=== PATIENT | male | born 1960 | race Asian ===

== ENCOUNTER → 2021-09-25 | Outpatient (CLI) | payer BC | END | disposition home or self-care (01) | LOC: RAH 07:31 | PROVIDERS: ATTEND Thoracic Surgery (Cardiothoracic Vascular Surgery) | DX: I65.23 Occlusion and stenosis of bilateral carotid arteries (principal) | CPT/HCPCS: 93880 ==

== ENCOUNTER → 2021-10-01 | Outpatient (CLI) | payer BC | END | disposition home or self-care (01) | LOC: SHCH 07:48 | PROVIDERS: ATTEND Internal Medicine | DX: R94.31 Abnormal electrocardiogram [ECG] [EKG] (principal) | CPT/HCPCS: 93306 ==

== ENCOUNTER 2021-10-22 05:59 | Day surgery (SDC) | payer BC ==
[2021-10-17 09:00] LABS: BASOPHILS % (AUTO) 0.8 % (0.0-5.0); EOSINOPHILS % (AUTO) 4.8 % (0.0-8.0); HEMATOCRIT 40.8 % (42-54); LYMPHOCYTES % (AUTO) 25.6 % (21.0-51.0); MEAN CORPUSCULAR HEMOGLOBIN 30.1 pg (27.0-33.0); MEAN CORPUSCULAR HGB CONC 33.1 g/dL (32.0-36.0); MEAN CORPUSCULAR VOLUME 91.1 fL (79-99); MONOCYTES % (AUTO) 8.2 % (3.0-13.0); NEUTROPHILS % (AUTO) 60.2 % (40.0-77.0); PLATELET COUNT (AUTO) 256 K/uL (130-400); RED BLOOD CELL COUNT(AUTO) 4.48 MIL/uL (4.50-6.20); RED CELL DISTRIBUTION WIDTH 13.5 % (11.0-15.5); WHITE BLOOD COUNT (AUTO) 9.5 K/uL (4.8-10.8)
[2021-10-17 09:11] LABS: INR 0.94 (0.85-1.15); PROTHROMBIN TIME 10.3 SEC (9.6-11.6)
[2021-10-17 09:12] LABS: PARTIAL THROMBOPLASTIN TIME 27.3 SEC (26.3-35.5)
[2021-10-17 09:14] LABS: CREATININE 3.4 mg/dL (0.5-1.5); POTASSIUM 5.3 mmol/L (3.5-5.1)
[2021-10-17 09:36] LABS: B-TYPE NATRIURETIC PEPTIDE 7 pg/mL (0-100)
[2021-10-21 12:01] VITALS: BP 91/63
[~2021-10-22] VITALS: Ht 175.3 cm; Wt 105.7 kg
[2021-10-22] VITALS (7 sets, daily range): BP systolic 110–156; BP diastolic 82–96
[~2021-10-22 05:59] MED LIST: MIDODRINE PO; SODIUM BICARBONATE PO
[2021-10-22] MEDS ORDERED: 0.9%NACL 1000ML 1,000 ML IV ONE (06:19)
[2021-10-22] MEDS ORDERED: 0.9%NACL 1000ML 1,000 ML IV SCH (08:00)
[2021-10-22] MEDS ORDERED: IOHEXOL 350 MG/ML 100ML INFUS..BTL IV ONE (08:54)
[2021-10-22] MEDS ORDERED: FENTANYL CITRATE PF 50 MCG/1 ML 2ML VIAL ONE (08:55)
[2021-10-22] MEDS ORDERED: MIDAZOLAM HCL 1 MG/ML 2ML VIAL ONE (08:55)
[2021-10-22] MEDS ORDERED: LIDOCAINE HCL 400MG/20ML VIAL ONE (08:55)
[2021-10-22] MEDS ORDERED: GLUCAGON 1MG KIT 1 MG ML IM PRN (10:00)
[2021-10-22] MEDS ORDERED: DEXTROSE 50%-WATER 50 ML DISP.SYRIN IV PRN (10:00)
[2021-10-22] MEDS: 0.9%NACL 1000ML 1,000 ML IV SCH ×2 (10:48→11:57)
== END 2021-10-22 13:15 | disposition home or self-care (01) ==
LOC: DAH 05:59
PROVIDERS: ATTEND Internal Medicine
DX: Z01.810 Encounter for preprocedural cardiovascular examination (principal); E11.22 Type 2 diabetes mellitus with diabetic chronic kidney disease; N18.4 Chronic kidney disease, stage 4 (severe); I45.10 Unspecified right bundle-branch block; R94.31 Abnormal electrocardiogram [ECG] [EKG]; Z79.01 Long term (current) use of anticoagulants; Z79.899 Other long term (current) drug therapy
CPT/HCPCS: 80048; 83880; 85025; 85610; 85730; 36415; 71045; 93005; 93458; C1894 ×2; J3010; J3490; J7030; J2250; J1644; Q9967; A4215; A4222; A4221; A4663; A4216; A4606; Q9965; A4223 ×3; 96360; 96361; 99156; 99157

== ENCOUNTER 2021-10-25 19:52 | Emergency (ER) | payer BC ==
[~2021-10-25] VITALS: Ht 175.3 cm; Wt 102.5 kg
[2021-10-25] MEDS: 0.9% NACL 500ML IV.SOLN 500 ML IV ONE (20:12)
[2021-10-25 20:17] LABS: BASOPHILS % (AUTO) 0.5 % (0.0-5.0); EOSINOPHILS % (AUTO) 4.9 % (0.0-8.0); HEMATOCRIT 37.5 % (42-54); LYMPHOCYTES % (AUTO) 19.6 % (21.0-51.0); MEAN CORPUSCULAR HEMOGLOBIN 30.2 pg (27.0-33.0); MEAN CORPUSCULAR HGB CONC 33.9 g/dL (32.0-36.0); MEAN CORPUSCULAR VOLUME 89.3 fL (79-99); MONOCYTES % (AUTO) 8.4 % (3.0-13.0); PLATELET COUNT (AUTO) 205 K/uL (130-400); RED CELL DISTRIBUTION WIDTH 13.2 % (11.0-15.5); WHITE BLOOD COUNT (AUTO) 9.4 K/uL (4.8-10.8)
[2021-10-25] MEDS: MORPHINE 4 MG SYG IVP ONE ×2 (20:24→21:23)
[2021-10-25 20:42] LABS: ALBUMIN 3.4 g/dL (3.5-5.0); CREATININE 2.5 mg/dL (0.5-1.5); CRP QUANTITATIVE 23.6 mg/L (0.00-9.0); POTASSIUM 4.2 mmol/L (3.5-5.1); TOTAL PROTEIN, SERUM 7.4 g/dL (6.0-8.3); URIC ACID 9.9 mg/dL (2.6-7.2)
[2021-10-25] MEDS: 0.9%NACL 1000ML 1,000 ML IV SCH ×2 (21:01→22:56)
[2021-10-25] MEDS: DEXAMETHASONE SOD PHOSPHATE 4 MG/ML 1ML VIAL ONE (21:01)
[2021-10-25] MEDS: DEXAMETHASONE SOD PHOSPHATE 4 MG/ML 1ML VIAL IVP ONE (21:01)
[2021-10-25 21:20] LABS: ERYTHROCYTE SEDIMENTATION RATE 30 MM/HR (0-20)
[2021-10-25 23:07] LABS: APPEARANCE,URINE CLEAR (CLEAR); BILIRUBIN,URINE NEGATIVE (NEGATIVE); COLOR,URINE YELLOW (YELLOW); GLUCOSE, URINE (UA) NEGATIVE (NEGATIVE); KETONES,URINE NEGATIVE (NEGATIVE); LEUKOCYTE ESTERASE ,URINE NEGATIVE (NEGATIVE); NITRATE,URINE NEGATIVE (NEGATIVE); OCCULT BLOOD,URINE NEGATIVE (NEGATIVE); PROTEIN,URINE NEGATIVE (NEGATIVE); UROBILINOGEN,URINE 0.2 mg/dL (0.2-1.0)
[2021-10-26 01:00] VITALS: BP 143/96
[2021-10-26] MEDS ORDERED: PRED20TA3 PO (03:55)
== END 2021-10-26 04:00 | disposition home or self-care (01) ==
LOC: EDH 19:52 → EEVIPCON 19:52 → EDH 10-26 04:00
DX: M10.9 Gout, unspecified (principal); M25.532 Pain in left wrist; I12.9 Hypertensive chronic kidney disease with stage 1 through stage 4 chronic kidney disease, or unspecified chronic kidney disease; N18.4 Chronic kidney disease, stage 4 (severe); Z79.52 Long term (current) use of systemic steroids
CPT/HCPCS: 99284; 96374; 96361; 96375; 82550; 84484; 84550; 80053; 85025; 85651; 83605; 86140; 81003; 36415; 96376; 93005; J1100; J2270 ×2

== ENCOUNTER 2021-11-10 21:23 | Observation (INO) | payer BC ==
[~2021-11-10] VITALS: Ht 175.3 cm; Wt 104.1 kg
[~2021-11-10 21:23] MED LIST changes: +PRED20TA3 PO
[2021-11-10 21:43] LABS: BASOPHILS % (AUTO) 0.6 % (0.0-5.0); EOSINOPHILS % (AUTO) 4.4 % (0.0-8.0); HEMATOCRIT 35.9 % (42-54); LYMPHOCYTES % (AUTO) 22.9 % (21.0-51.0); MEAN CORPUSCULAR HEMOGLOBIN 30.9 pg (27.0-33.0); MEAN CORPUSCULAR VOLUME 90.9 fL (79-99); MONOCYTES % (AUTO) 6.7 % (3.0-13.0); NEUTROPHILS % (AUTO) 64.9 % (40.0-77.0); PLATELET COUNT (AUTO) 251 K/uL (130-400); RED BLOOD CELL COUNT(AUTO) 3.95 MIL/uL (4.50-6.20); RED CELL DISTRIBUTION WIDTH 13.2 % (11.0-15.5); WHITE BLOOD COUNT (AUTO) 9.3 K/uL (4.8-10.8)
[2021-11-10 21:51] LABS: CREATININE 3.1 mg/dL (0.5-1.5); POTASSIUM 4.5 mmol/L (3.5-5.1)
[2021-11-10 21:53] LABS: INR 0.93 (0.85-1.15); PROTHROMBIN TIME 10.2 SEC (9.6-11.6)
[2021-11-10 21:54] LABS: PARTIAL THROMBOPLASTIN TIME 28.7 SEC (26.3-35.5)
[2021-11-10 22:00] LABS: ALBUMIN 3.4 g/dL (3.5-5.0)
[2021-11-10 22:06] LABS: ABG BASE EXCESS -10.5 mmol/L (-2.0-3.0); ABG HCO3 13.7 mmol/L (21.0-28.0); ABG PCO2 26 mmHg (35-48)
[2021-11-11] MEDS ORDERED: HEPARIN 25,000 UNITS/250ML D5W 250 ML IV STA (00:51)
[2021-11-11] MEDS ORDERED: HEPARIN 5,000 UNIT VIAL ONE (00:57)
[2021-11-11] MEDS ORDERED: NITROGLYCERIN 0.4 MG SL TAB SL PRN (02:00)
[2021-11-11] MEDS ORDERED: GUAIFENESIN-DM 200/20 MG 10 ML PO PRN (02:00)
[2021-11-11] MEDS ORDERED: MAG/ALUM/SIMETH 30 ML UDCUP PO PRN (02:00)
[2021-11-11] MEDS ORDERED: ACETAMINOPHEN WITH CODEINE 1 TAB TAB PO PRN ×2 (02:00)
[2021-11-11] MEDS ORDERED: HYDRALAZINE 20MG/ML VIAL IV PRN (02:00)
[2021-11-11] MEDS ORDERED: LACTULOSE 20 GM/30 ML UDCUP PO PRN (02:00)
[2021-11-11] MEDS ORDERED: ACETAMINOPHEN 325 MG TAB PO PRN (02:00)
[2021-11-11] MEDS ORDERED: ONDANSETRON 4MG INJ IV PRN (02:00)
[2021-11-11] MEDS ORDERED: DIPHENHYDRAMINE HCL 25 MG CAPSULE PO PRN (02:00)
[2021-11-11] MEDS ORDERED: HEPARIN 25,000 UNITS/250ML D5W 250 ML IV SCH (05:30)
[2021-11-11 05:42] VITALS: BP 137/85
[2021-11-11 06:41] VITALS: BP 115/68
[2021-11-11 07:20] LABS: INR 0.98 (0.85-1.15); PROTHROMBIN TIME 10.7 SEC (9.6-11.6)
[2021-11-11] MEDS ORDERED: MIDO5TAB4 PO (07:40)
[2021-11-11] MEDS ORDERED: SODI650T PO (07:40)
[2021-11-11 07:48] LABS: PARTIAL THROMBOPLASTIN TIME 98.6 SEC (26.3-35.5)
[2021-11-11] MEDS: FAMOTIDINE 20MG VIAL IV SCH (07:57)
[2021-11-11 11:24] VITALS: BP 123/72
[2021-11-11 15:41] LABS: APPEARANCE,URINE CLEAR (CLEAR); BILIRUBIN,URINE NEGATIVE (NEGATIVE); COLOR,URINE YELLOW (YELLOW); GLUCOSE, URINE (UA) NEGATIVE (NEGATIVE); KETONES,URINE NEGATIVE (NEGATIVE); LEUKOCYTE ESTERASE ,URINE NEGATIVE (NEGATIVE); NITRATE,URINE NEGATIVE (NEGATIVE); OCCULT BLOOD,URINE TRACE-INTACT (NEGATIVE); PROTEIN,URINE NEGATIVE (NEGATIVE); UROBILINOGEN,URINE 0.2 mg/dL (0.2-1.0)
[2021-11-11 15:44] LABS: CHLORIDE,URINE RANDOM 111 mmol/L (110-250); CREATININE,URINE RANDOM 74 mg/dL (30-135); POTASSIUM,URINE RANDOM 28 mmol/L (25-125); SODIUM,URINE RANDOM 92 mmol/l (40-220)
[2021-11-11 15:51] VITALS: BP 135/69
[2021-11-11 16:07] LABS: BACTERIA,URINE Few /HPF (None Seen); RBC,URINE 0-1 /HPF (0-1); WBC,URINE 0-1 /HPF (0-1)
[2021-11-11 16:08] LABS: MUCUS,URINE Rare LPF (None Seen); SQUAMOUS EPITHELIAL CELL,UR Rare /HPF (0-2)
[2021-11-11 16:21] LABS: INR 0.98 (0.85-1.15); PROTHROMBIN TIME 10.7 SEC (9.6-11.6)
[2021-11-11 16:46] LABS: PARTIAL THROMBOPLASTIN TIME 90.4 SEC (26.3-35.5)
[2021-11-11 19:39] VITALS: BP 128/79
[2021-11-11] MEDS: SODIUM BICARBONATE 650 MG TAB PO SCH (19:43)
[2021-11-11 23:40] VITALS: BP 135/85
[2021-11-11 23:46] LABS: INR 0.97 (0.85-1.15); PROTHROMBIN TIME 10.6 SEC (9.6-11.6)
[2021-11-11 23:48] LABS: PARTIAL THROMBOPLASTIN TIME 75.6 SEC (26.3-35.5)
[2021-11-12 04:19] VITALS: BP 124/74
[2021-11-12 07:00] VITALS: BP 102/60
[2021-11-12 07:08] LABS: MEAN CORPUSCULAR HEMOGLOBIN 30.3 pg (27.0-33.0); MEAN CORPUSCULAR HGB CONC 34.4 g/dL (32.0-36.0); RED BLOOD CELL COUNT(AUTO) 4.09 MIL/uL (4.50-6.20); RED CELL DISTRIBUTION WIDTH 13.2 % (11.0-15.5); WHITE BLOOD COUNT (AUTO) 7.6 K/uL (4.8-10.8)
[2021-11-12 07:29] LABS: ALBUMIN 3.3 g/dL (3.5-5.0); CREATININE 2.7 mg/dL (0.5-1.5); MAGNESIUM 1.9 mg/dL (1.80-2.40); PHOSPHORUS 3.8 mg/dL (2.5-4.9); POTASSIUM 4.1 mmol/L (3.5-5.1); THYROID STIMULATING HORMONE 1.79 uIU/mL (0.36-3.74); TOTAL PROTEIN, SERUM 6.8 g/dL (6.0-8.3); URIC ACID 10.9 mg/dL (2.6-7.2)
[2021-11-12] MEDS: FAMOTIDINE 20MG VIAL IV SCH (08:13)
[2021-11-12] MEDS: SODIUM BICARBONATE 650 MG TAB PO SCH (08:14)
[2021-11-12] MEDS: APIXABAN 5 MG TABLET PO SCH ×2 (08:14→08:15)
[2021-11-12] MEDS ORDERED: Vitamin B Complex/Vit C/Folic Acid PO SCH (09:00)
[2021-11-12] MEDS ORDERED: FAMO-136 PO (10:11)
[2021-11-12] MEDS ORDERED: Folic Acid/Vitamin B Comp W-C PO (10:11)
[2021-11-12] MEDS ORDERED: APIX5TAB PO (10:12)
== END 2021-11-12 11:00 | disposition home or self-care (01) ==
LOC: EDH 21:23 → EDHIP 11-11 01:52 → INTOOBSV 11-11 01:52 → 2AH 11-11 05:30
PROVIDERS: ADMIT Hospitalist; ATTEND Hospitalist
DX: I82.403 Acute embolism and thrombosis of unspecified deep veins of lower extremity, bilateral (principal); Z20.822 Contact with and (suspected) exposure to COVID-19; R55 Syncope and collapse; N17.9 Acute kidney failure, unspecified; N18.4 Chronic kidney disease, stage 4 (severe); I12.9 Hypertensive chronic kidney disease with stage 1 through stage 4 chronic kidney disease, or unspecified chronic kidney disease; M10.9 Gout, unspecified; E66.01 Morbid (severe) obesity due to excess calories; E87.2 Acidosis; I25.10 Atherosclerotic heart disease of native coronary artery without angina pectoris; Z86.718 Personal history of other venous thrombosis and embolism; Z95.828 Presence of other vascular implants and grafts; Z79.899 Other long term (current) drug therapy
CPT/HCPCS: 78582; 93970; 71045; 87635; 82947; 82550; 84484; 80053 ×2; 82803; 85025; 85378; 85610 ×4; 85730 ×5; 83605; 36415 ×3; 93005; 36600; 82435; 84132; 84295; 85018; 96366 ×2; 99285; 96365; 76770; 96375; 82436; 82570; 84300; 84133; 83935; 81001; 96376; 84443; 83735; 84100; 84550; 85027; C9803; A9540; A9558; J3490 ×2; G0378; J1644 ×3